=== PATIENT | female | born 1940 | race Caucasian/White ===

== ENCOUNTER → 2017-07-17 11:29 | Outpatient (CLI) | payer MEDICARE, OTHER, SELFPAY ==
[2017-07-17 14:18] LABS: Anion Gap 8 (5-15); BUN 11 mg/dL (7-18); BUN/Creat Ratio 16.4 RATIO (10-20); Calcium,Total 8.9 mg/dL (8.5-10.1); Chloride 104 mmol/L (98-107); Creatinine, Serum 0.67 mg/dL (0.55-1.02); EST Glomerular Filtration Rate 90 mL/min (>60); Est Glom Filt Rate - Afr Amer 109 mL/min (>60); Glucose 82 mg/dL (74-106); Potassium 4.2 mmol/L (3.5-5.1); Sodium Level 141 mmol/L (136-145)
== END ==
PROVIDERS: Family Provider Family Medicine; PCP Family Medicine; Visit Provider Family Medicine
DX: I10 Essential (primary) hypertension (principal)
CPT/HCPCS: 36415; 80048

== ENCOUNTER → 2017-08-28 10:20 | Outpatient (CLI) | payer MEDICARE, OTHER, SELFPAY ==
--- NOTE | 2017-08-28 10:22 | BI_ITS ---
MAMMOGRAPHY - BILATERAL SCREENING 3-D YON SYNTHESIS REASON FOR EXAM: Female, 77 years old. Bilateral Screening 3-D tomosynthesis PERTINENT HISTORY: No significant family history. TECHNIQUE: 2-D mammograms and 3-D Yon synthesis of the breast (s) were performed. CAD was performed. COMPARISON: July 25, 2016. FINDINGS: The breast composition is composed of scattered fibroglandular density. There is an indeterminate cluster of calcifications within the slightly upper, slightly inner left breast located approximately 26 mm from the nipple base. Recommend further evaluation with focal magnification views. There is no suspicious nodule. There is no suspicious mass. There are no secondary signs of malignancy. BI/SCREENING MAMM (CAD), BILAT IMPRESSION: Indeterminate clusters calcifications within the subareolar left breast. ASSESSMENT CATEGORY: BIRADS Category 0: Incomplete. Need additional imaging evaluation as above. A letter regarding these results will be sent to the patient by the facility within 30 days. FOLLOW UP RECOMMENDATION: Additional imaging recommended as above. (E) Approximately 10% of breast cancers are not detected by mammography. A normal mammogram should not delay biopsy of a clinically suspicious abnormality. Electronically Signed: Erick Nielsen MD at 12:10 EDT , Service support ,
== END ==
PROVIDERS: Family Provider Family Medicine; PCP Family Medicine; Visit Provider Family Medicine
DX: Z12.31 Encounter for screening mammogram for malignant neoplasm of breast (principal)
CPT/HCPCS: 77063; 77067

== ENCOUNTER → 2017-08-31 13:24 | Outpatient (CLI) | payer MEDICARE, OTHER, SELFPAY ==
--- NOTE | 2017-08-31 13:30 | BI_ITS ---
MAMMOGRAPHY - UNILATERAL DIAGNOSTIC: LEFT BREAST REASON FOR EXAM: Female, 77 years old. Abnormal screening mammogram. Indeterminate calcifications identified within the left breast on bilateral mammography performed August 28, 2017. PERTINENT HISTORY: Non-contributory. TECHNIQUE: Digital examination. Conventional digital magnification Mediolateral oblique (MLO) and craniocaudad (CC) views of the breast were obtained. CAD: COMPARISON: None. FINDINGS: Breast Composition: There are scattered areas of fibroglandular density. There are multiple, typically benign appearing calcifications with superimposed loose clustering. There is no suspicious cluster of pleomorphic calcifications. No other significant abnormalities are identified. BI/DIAG MAMM W/CAD, UNILAT IMPRESSION: Stable unilateral diagnostic mammogram. ASSESSMENT CATEGORY: BIRADS Category 2: Benign. A letter regarding these results will be sent to the patient by the facility within 30 days. FOLLOW-UP RECOMMENDATION: Follow-up recommended within 6 months. (C) Approximately 10% of breast cancers are not detected by mammography. A normal mammogram should not delay biopsy of a clinically suspicious abnormality. Electronically Signed: Erick Nielsen MD at 7:50 EDT , Service support ,
== END ==
PROVIDERS: Family Provider Family Medicine; PCP Family Medicine; Visit Provider Family Medicine
DX: R92.8 Other abnormal and inconclusive findings on diagnostic imaging of breast (principal)
CPT/HCPCS: 77065

== ENCOUNTER → 2018-01-15 11:23 | Outpatient (CLI) | payer MEDICARE, OTHER, SELFPAY ==
[2018-01-15 14:16] LABS: Anion Gap 9 (5-15); BUN 13 mg/dL (7-18); BUN/Creat Ratio 15.9 RATIO (10-20); Calcium,Total 9.4 mg/dL (8.5-10.1); Chloride 106 mmol/L (98-107); Cholesterol 164 mg/dL (200); Creatinine, Serum 0.82 mg/dL (0.55-1.02); EST Glomerular Filtration Rate 72 mL/min (>60); Est Glom Filt Rate - Afr Amer 87 mL/min (>60); Glucose 100 mg/dL (74-106); High Density Lipoprotein 53 mg/dL; Potassium 4.5 mmol/L (3.5-5.1); Sodium Level 145 mmol/L (136-145); Triglycerides 113 mg/dL; Very Low Density Lipoprotein 23 mg/dL (5-40)
== END ==
PROVIDERS: Family Provider Family Medicine; PCP Family Medicine; Visit Provider Family Medicine
DX: I10 Essential (primary) hypertension (principal)
CPT/HCPCS: 36415; 80048; 80061

== ENCOUNTER → 2018-09-17 | Outpatient (CLI) | payer MEDICARE, SELFPAY ==
--- NOTE | 2018-09-17 11:13 | BI_ITS ---
MAMMOGRAPHY - BILATERAL SCREENING REASON FOR EXAM: Female, 78 years old. Routine annual screening examination. PERTINENT HISTORY: Non-contributory. TECHNIQUE: Digital bilateral breast gilberto (3D mammographic acquisition) in the CC and MLO projections. 2-D mediolateral oblique (MLO) and craniocaudad (CC) views of both breasts were obtained. CAD: Full Field Digital Mammography with Computer Added Detection was performed. COMPARISON: Comparison is made with prior study dated August 28, 2017 and July 25, 2016. FINDINGS: Breast Composition: The breasts are heterogeneously dense, which may obscure small masses. There are no dominant masses or suspicious calcifications. No other significant abnormalities are identified. There has been no significant change since the prior study. BI/SCREENING MAMM (CAD), BILAT IMPRESSION: Stable bilateral screening mammogram. Yearly follow-up mammogram recommended. (A) ASSESSMENT CATEGORY: BIRADS Category 1: Negative. A letter regarding these results will be sent to the patient by the facility within 30 days. Approximately 10% of breast cancers are not detected by mammography. A normal mammogram should not delay biopsy of a clinically suspicious abnormality. [id number] Electronically Signed: Kody Falcon, at 13:51 EDT , Service support ,
== END | disposition home or self-care (01) ==
LOC: OPBI 10:52
PROVIDERS: Family Provider Family Medicine; PCP Family Medicine; Referring Provider Family Medicine; Visit Provider Family Medicine
DX: Z12.31 Encounter for screening mammogram for malignant neoplasm of breast (principal)
CPT/HCPCS: 77063; 77067

== ENCOUNTER → 2019-01-14 11:16 | Outpatient (CLI) | payer MEDICARE, SELFPAY ==
[2017-09-13 15:36] VITALS: BMI 27.4
[2019-01-14 13:31] LABS: Anion Gap 6 (5-15); BUN 14 mg/dL (7-18); Calcium,Total 9.3 mg/dL (8.5-10.1); Chloride 106 mmol/L (98-107); Cholesterol 154 mg/dL (200); Creatinine, Serum 0.82 mg/dL (0.55-1.02); EST Glomerular Filtration Rate 71 mL/min (>60); Est Glom Filt Rate - Afr Amer 86 mL/min (>60); Glucose 97 mg/dL (74-106); High Density Lipoprotein 52 mg/dL; Potassium 4.3 mmol/L (3.5-5.1); Sodium Level 140 mmol/L (136-145); Triglycerides 112 mg/dL; Very Low Density Lipoprotein 22 mg/dL (5-40)
== END ==
PROVIDERS: Family Provider Family Medicine; PCP Family Medicine; Referring Provider Family Medicine; Visit Provider Family Medicine
DX: I10 Essential (primary) hypertension (principal)
CPT/HCPCS: 36415; 80048; 80061

== ENCOUNTER 2019-06-16 11:31 | Emergency (ER) | payer MEDICARE, SELFPAY ==
[2019-06-16 11:32] VITALS: BP 149/85; PULSE 67; RESP 16; TEMP 36.6; O2SAT 95; BMI 28.0
[2019-06-16 11:41] VITALS: BP 166/76; PULSE 59; RESP 16; O2SAT 97
--- NOTE | 2019-06-16 11:49 | EKG12_ITS ---
Test Reason : HEART RACING Blood Pressure : / mmHG Vent. Rate : 058 BPM Atrial Rate : 058 BPM P-R Int : 148 ms QRS Dur : 112 ms QT Int : 442 ms P-R-T Axes : 068 003 040 degrees QTc Int : 433 ms Sinus bradycardia Incomplete right bundle branch block Nonspecific ST abnormality Abnormal ECG Confirmed by VY OSBORN MD ([id number]), tape editor TD BONDS ([id number]) on 06/18/2019 8:01:45 AM Referred By: RENETTA
[2019-06-16 12:07] LABS: Absolute Lymphocyte Count 1.07 X10^3/uL (0.83-4.51); Absolute Neutrophil Count 5.8 X10^3/uL (2.0-7.7); Basophil# 0.03 X10^3/uL; Basophil% 0.4 % (0-1); Eosinophil# 0.02 X10^3/uL; Eosinophils% 0.3 % (0-5); Hematocrit 41.3 % (37-47); Hemoglobin 14.3 g/dL (12.0-15.0); Lymphocyte # 1.07 X10^3/ul (4.0); Lymphocyte % 14.9 % (19-41); Mean Corp Hgb Conc 34.6 g/dL (32-36); Mean Corpuscular Hgb 30.9 pg (27.0-32.0); Mean Corpuscular Volume 89.2 fL (81-99); Monocyte% 4.2 % (0-10); NRBC Flagged by Analyzer 0 % (0-5); Neutrophil # 5.76 X10^3/uL (2.7-7.7); Neutrophil % 80.1 % (47-70); Platelet Count 188 K/mm3 (150-450); RBC Distribution Width CV 11.9 % (11.6-14.6); RBC Distribution Width SD 38.6 fl (35.1-43.9); Red Blood Count 4.63 M/mm3 (4.2-5.4); White Blood Count 7.2 K/mm3 (4.4-11.0)
[2019-06-16] MEDS: Ondansetron 4 MG/2 ML Vial IV (12:24)
[2019-06-16 12:44] LABS: ALB/GLOB Ratio 1.1 RATIO (0.9-2.4); AST(SGOT) 13 U/L (15-37); Alanine Aminotransfer ALT/SGPT 21 U/L (13-56); Albumin, Serum 3.9 g/dL (3.2-5.0); Alkaline Phosphatase 58 U/L (45-117); Anion Gap 9 (5-15); BUN 10 mg/dL (7-18); BUN/Creat Ratio 13.2 RATIO (10-20); Calcium,Total 9.6 mg/dL (8.5-10.1); Chloride 103 mmol/L (98-107); Creatinine, Serum 0.76 mg/dL (0.55-1.02); EST Glomerular Filtration Rate 78 mL/min (>60); Est Glom Filt Rate - Afr Amer 94 mL/min (>60); Globulin 3.4 g/dL (2.2-4.2); Glucose 155 mg/dL (74-106); Potassium 3.3 mmol/L (3.5-5.1); Protein, Total 7.3 g/dL (6.4-8.2); Sodium Level 139 mmol/L (136-145)
[2019-06-16] MEDS: LORazepam 1 MG Tablet PO (13:28)
[2019-06-16 13:36] VITALS: BP 148/78; PULSE 69; RESP 18; O2SAT 94
[2019-06-16 13:41] LABS: Red Blood Cells-Urine 0 SEEN /hpf (0-5)
[2019-06-16 13:42] LABS: Color, Urine Yellow (Yellow); Glucose, Dipstick Normal (Normal); Ketone-Dipstick 15 mg/dl (Negative); Leukocyte Esterase-Dipstick 25 /ul (Negative); Nitrite-Dipstick Negative (Negative); Occult Blood-Urine Negative /ul (Negative); Protein-Dipstick Negative (Negative); Specific Gravity, Urine 1.015 (1.002-1.030); Urine Bilirubin Dipstick Negative (Negative); Urine Clarity Clear (Clear); Urine Urobilinogen Normal (Normal)
[2019-06-16 13:48] LABS: Squamous Epithelial Cells - UA 0-5 SEEN /hpf (5-10); White Blood Cells 0-5 SEEN /hpf (0-5)
[2019-06-16 13:49] LABS: Bacteria 1+ /hpf (None Seen); Mucous, Urine 2+ /hpf (<or=2+)
--- NOTE | 2019-06-16 13:52 | ED.DCSUM_ITS ---
- ER Visit Summary Date of Service: 06/16/19 Chief Complaint: Nausea and vomiting History of Present Illness: The patient is a [address] Satinder Harp. She reports that she has nausea and vomiting that began today. She vomited once. No blood in her emesis. She denies abdominal pain. No diarrhea. Last bowel was today. She is had normal hematochezia. Patient does complain of generalized weakness. Patient reports that 5 days ago she had an episode of palpitations that she describes as a fast heart rate that lasted 3 to 4 seconds. 2 days ago she had another episode of the last 3 to 4 seconds. She denies any chest pain, cough, fever, chills, or other complaints. Physical Examination: Vitals: Stable. Afebrile. General: Well-nourished and well-developed. Head: Normocephalic atraumatic. Neck: Supple, no lymphadenopathy. No JVD. Nontender. Cardiovascular: Regular rate and rhythm. No murmurs. Respiratory: No respiratory distress. Clear to auscultation bilaterally. Abdominal: Soft, nontender, nondistended, normal bowel sounds. No guarding, rebound, or peritoneal signs. Back: Nontender. Extremities: Nontender, no edema. Skin: Normal color, no rash. Neurologic: Alert and oriented ?3. Cranial nerves II through XII are intact. Normal strength and sensation. Psych: Normal affect. Test Results: EKG sinus bradycardia with a right bundle branch block that is incomplete and a rate of 58. Is unchanged from May 2016. Troponin is ne gative. UA is negative. LFTs are normal. Chem-7 shows potassium 3.3 and glucose 155. CBC shows segmented feels 80 lymphocytes 15. Emergency Department Course and Treatment: Patient complained of anxiety while here. She was given a dose of Zofran IV and Ativan p.o. She is resting comfortably. Treatment Plan: Patient be discharged with Zofran. Strict follow-up with Dr. Harp in 2 days for another exam. At this time I do not feel comfortable writing her for more Ativan. Return to the emergency department for any worsening symptoms. Disposition: To home in improved and stable condition. Impression: 1. Palpitations. 2. Vomiting. 3. Anxiety. This note was generated with dineoutation software. It may contain incorrect words, spelling, and punctuation that were not noted in review of the chart prior to signing ED Disposition - Plan for ED Patient: Disposition: Home or Assisted Living Instructions: Palpitations Prescriptions: Ondansetron [Zofran Odt] 4 mg PO Q8H PRN PRN #10 tab PRN Reason: Nausea Prescription Printed Referrals: Satinder Jett MD [Primary Care Provider] - As soon as possible
== END 2019-06-16 15:07 | disposition home or self-care (01) ==
LOC: ED 12:00
PROVIDERS: Emergency Provider Emergency Medicine; PCP Family Medicine
DX: R00.2 Palpitations (principal); R11.10 Vomiting, unspecified; F41.9 Anxiety disorder, unspecified; I45.10 Unspecified right bundle-branch block; I10 Essential (primary) hypertension; E78.00 Pure hypercholesterolemia, unspecified; Z90.49 Acquired absence of other specified parts of digestive tract; Z79.82 Long term (current) use of aspirin; Z79.899 Other long term (current) drug therapy
CPT/HCPCS: 80053; 81001; 84484; 85025; 93005; 96361; 96374; 99285; J7040; A4216; J2405

== ENCOUNTER 2019-07-06 19:13 | Emergency (ER) | payer MEDICARE, SELFPAY ==
[2019-07-06 19:14] VITALS: BP 151/70; PULSE 74; RESP 18; TEMP 36.2; O2SAT 96; BMI 28.3
--- NOTE | 2019-07-06 19:39 | EKG12_ITS ---
Test Reason : HYPERTENSION Blood Pressure : / mmHG Vent. Rate : 070 BPM Atrial Rate : 070 BPM P-R Int : 110 ms QRS Dur : 108 ms QT Int : 406 ms P-R-T Axes : 003 016 035 degrees QTc Int : 438 ms Sinus rhythm with short WA with occasional Premature ventricular complexes Incomplete right bundle branch block Borderline ECG Confirmed by IRENA PATEL, VY ([id number]), newspaper editor PHUC HELLER ([id number]) on 07/08/2019 10:15:28 AM Referred By: RENETTA Confirmed By:VY OSBORN MD
[2019-07-06 19:46] VITALS: BP 141/76; PULSE 58; RESP 14; O2SAT 96
[2019-07-06] MEDS: LORazepam 1 MG Tablet PO (19:51)
[2019-07-06 19:58] LABS: Absolute Lymphocyte Count 1.54 X10^3/uL (0.83-4.51); Absolute Neutrophil Count 3.3 X10^3/uL (2.0-7.7); Basophil# 0.05 X10^3/uL; Basophil% 0.9 % (0-1); Eosinophil# 0.18 X10^3/uL; Eosinophils% 3.2 % (0-5); Hematocrit 37.4 % (37-47); Hemoglobin 13.8 g/dL (12.0-15.0); Lymphocyte # 1.54 X10^3/ul (4.0); Mean Corp Hgb Conc 36.9 g/dL (32-36); Mean Corpuscular Hgb 33.6 pg (27.0-32.0); Mean Platelet Vol. 9.8 fl (6.2-12.0); Monocyte# 0.58 X10^3/uL; Monocyte% 10.2 % (0-10); NRBC Flagged by Analyzer 0 % (0-5); Neutrophil # 3.34 X10^3/uL (2.7-7.7); Neutrophil % 58.5 % (47-70); Platelet Count 213 K/mm3 (150-450); RBC Distribution Width CV 12.1 % (11.6-14.6); RBC Distribution Width SD 39.9 fl (35.1-43.9); Red Blood Count 4.11 M/mm3 (4.2-5.4); White Blood Count 5.7 K/mm3 (4.4-11.0)
[2019-07-06 20:04] VITALS: BP 121/96; PULSE 64; RESP 21; O2SAT 96
[2019-07-06 20:20] LABS: Anion Gap 7 (5-15); BUN 20 mg/dL (7-18); BUN/Creat Ratio 17.9 RATIO (10-20); Calcium,Total 8.8 mg/dL (8.5-10.1); Chloride 105 mmol/L (98-107); Creatinine, Serum 1.12 mg/dL (0.55-1.02); EST Glomerular Filtration Rate 50 mL/min (>60); Est Glom Filt Rate - Afr Amer 60 mL/min (>60); Estimated Creatinine Clearance 31.16 ml/min; Glucose 131 mg/dL (74-106); Potassium 3.6 mmol/L (3.5-5.1); Sodium Level 139 mmol/L (136-145); Thyroid Stim Hormone (TSH) 2.41 uIU/mL (0.358-3.74)
--- NOTE | 2019-07-06 21:56 | ED.DCSUM_ITS ---
- ER Visit Summary Date of Service: 07/06/19 Chief Complaint: Do not feel good History of Present Illness: The patient is a [address] Satinder Harp. She reports that an hour ago she began not feeling well. When asked what she means by this she reports that her hands turn bright red and her head felt bloated. She also reports that she has a dry mouth. On review of systems patient denies any fever, chills, change in her vision. No sore throat, cough, chest pain, shortness of breath. No abdominal pain, nausea, vomiting, or diarrhea. No melena or hematochezia. Her last bowel was yesterday. No dysuria or frequency. No neck or back pain. No rash, headache, numbness, or weakness. Patient reports that over the past week there have been 3 episodes where she saw her nifedipine in her stool and it had not dissolved. She is concerned because her blood pressure is elevated. Physical Examination: Vitals: Stable. Afebrile. General: Well-nourished and well-developed. Head: Normocephalic atraumatic. Neck: Supple, no lymphadenopathy. No JVD. Nontender. Cardiovascular: Regular rate and rhythm. No murmurs. Respiratory: No respiratory distress. Clear to auscultation bilaterally. Abdominal: Soft, nontender, nondistended, normal bowel sounds. No guarding, re bound, or peritoneal signs. Back: Nontender. Extremities: Nontender, no edema. Skin: Normal color, no rash. Neurologic: Alert and oriented ?3. Cranial nerves II through XII are intact. Normal strength and sensation. Psych: Anxious. Test Results: EKG is sinus at 70 with right bundle branch block and a IN of 110. Is unchanged from previous. CBC shows monocytes of 10. Chem-7 shows a glucose 131, BUN 20, creatinine 1.12. Emergency Department Course and Treatment: Patient was given a 500 cc bolus of normal saline. She does appear quite anxious. She is given dose of Ativan p.o. She is resting comfortably and reports that her hands are back to her normal color. Treatment Plan: This time I do not have an explanation for why the patient's blood pressure medication is not being absorbed and she is finding this in her stool. However, her blood pressure currently is 141/76 and I feel that she is a suitable candidate for further outpatient evaluation. She will be discharged instructed to follow-up Dr. Satinder Harp soon as possible. Return to the emergency department for any worsening symptoms. Disposition: To home in improved and stable condition. Impression: 1. Hypertension. 2. Anxiety. This note was generated with Dizzywoodation software. It may contain incorrect words, spelling, and punctuation that were not noted in review of the chart prior to signing ED Disposition - Plan for ED Patient: Disposition: Home or Assisted Living Instructions: HYPERTENSION, Established Referrals: Satinder Jett MD [Primary Care Provider] - As soon as possible
[2019-07-06 22:05] VITALS: BP 145/67; PULSE 65; RESP 17; O2SAT 95
== END 2019-07-06 22:16 | disposition home or self-care (01) ==
PROVIDERS: Emergency Provider Emergency Medicine; PCP Family Medicine
DX: I10 Essential (primary) hypertension (principal); F41.9 Anxiety disorder, unspecified; I45.10 Unspecified right bundle-branch block; E78.00 Pure hypercholesterolemia, unspecified; Z79.82 Long term (current) use of aspirin; Z79.899 Other long term (current) drug therapy; Z87.891 Personal history of nicotine dependence
CPT/HCPCS: 80048; 84443; 85025; 93005; 96360; 99285; J7040; A4216

== ENCOUNTER 2019-07-13 01:01 | Emergency (ER) | payer MEDICARE, SELFPAY ==
[2019-07-13 01:02] VITALS: BP 155/71; PULSE 68; RESP 14; TEMP 36.6; O2SAT 97; BMI 28.5
--- NOTE | 2019-07-13 01:20 | ED.VIS.GEN ---
History of Present Illness Chief Complaint: Hypertension Informant: Patient Onset: Hours - several, since checking blood pressure at home Current Severity: - - no sx Maximum Severity: - - no sx Associated Symptoms: swelling in ankles off and on x several months. anxiety (per pt). Narrative: Patient states she feels anxious and her hands turn red when her blood pressure is up. She has felt like that tonight. Her blood pressure was 175/91 at home. Here it is [address] still feels the same way. She saw her physician after being seen here out of concern that she was seen pills show up in her stool. As a result of this, she saw nurse practitioner in the office 4 days ago who changed her medication from nifedipine ER to amlodipine 5 mg. Her losartan was left alone and she has still been taking that. She states her blood pressure has been up and nothing is changing due to this new medication. She took 2 additional ones tonight and did not feel better so presents to the emergency department for evaluation at 1 AM. She denies any other new symptoms, she denies any neurologic symptoms. She was also prescribed anxiety medication, new for her several days ago. Prior similar symptoms: Yes - seen here recently for same. - Past Medical History (1) Hypertension Status: Chronic Past Medical History - Allergies and Home Meds Allergies/Adverse Reactions: Allergies propoxyphene HCl [From Darvon] Adverse Reaction (Verified 07/13/19 01:02) Upset Stomach Primary Care Physician: Satinder Jett MD [Primary Care Provider] - 3-5 Days Lives: Alone Smoking Status: Never smoker Review of Systems General: Denies: Chills, Fever, Sweats Eyes: Denies: Visual changes - bilaterally, Diplopia ENT: Denies: Rhinorrhea, Sore throat Cardiovascular: Denies: Chest pain, Palpitations Respiratory: Denies: Dyspnea, Cough, Dyspnea on exertion Gastrointestinal: Denies: Abdominal pain, Nausea, Vomiting, Diarrhea, Melena, Hematochezia Genitourinary: Denies: Dysuria, Hematuria, Frequency Musculoskeletal: Reports: Swelling. Denies: Back pain, Extremity Pain Skin: Denies: Rash, Wounds Neurological: Denies: Headache, Weakness, Numbness Psych: Reports: Anxiety Physical Exam Vital Signs/Narrative: Vital Signs Temp Pulse Resp BP Pulse Ox 07/13/19 01:02 97.8 F 68 14 155/71 H 97 Inital Vital Signs reviewed: Yes General: Well nourished, Well developed, No Acute Distress Head: Normocephalic, Atraumatic Eyes: Perrl, EOMI ENT: Moist mucous membranes, No rhinorrhea Neck: Supple, Nontender Cardiovascular: Regular rate, Regular rhythm, No murmurs Respiratory: No distress, CTA bilaterally, Chest nontender Abdomen: Soft, Nontender, Nondistended, Normal bowel sounds Back: Nontender, Normal Inspection Extremities: Nontender, No edema Skin: Normal color, No rash Neurological: Alert, Oriented x3, Cranial nerves II-XII grossly intact, Normal Strength, Normal Sensation Psychological: Normal Mood, - - mildly anxious Diagnostic/Tx/Re-eval Laboratory Tests 07/13/19 Range/Units 01:30 Sodium 133 L (136-145) mmol/L Potassium 3.4 L (3.5-5.1) mmol/L Chloride 101 (98-107) mmol/L Carbon Dioxide 26.0 (21.0-32.0) mmol/L Anion Gap 6 (5-15) BUN 10 (7-18) mg/dL Creatinine 0.68 (0.55-1.02) mg/dL Estim Creat Clear Calc 34.90 ml/min Est GFR (MDRD) Af Amer 108 (>60) mL/min Est GFR (MDRD) Non-Af 89 (>60) mL/min BUN/Creatinine Ratio 14.8 (10-20) RATIO Glucose 140 H (74-106) mg/dL Calcium 9.2 (8.5-10.1) mg/dL - Medical Decision Making Patient has a mild renal insufficiency 1 week ago when she was here, I repeated her BMP to ensure that her creatinine was not worsening giving her intermittent ankle swelling. Her creatinine has normalized. I reassured her. Additionally, I looked up some information on the hospital clinical pharmacology information site regarding her nifedipine extended release tablets that she was seen in her stool. There is a statement that confirms this is normal and not unusual to see shells in the stool. The patient responded by saying that they were not empty. I advised her that that does not mean the drug was not absorbed. There is filler that could have remained within the shells. She wants to go back to using that medication, I advised her to do so under the direction of her doctor who she should consult with after the weekend. I advised her that if she wants to take the nifedipine ER again that is fine but she should do so without the amlodipine. Otherwise she can double her amlodipine and stay on it, it may not have taken full effect since it has not been taken for even 1 week yet. I reassured her, gave her a clonidine, her blood pressure came down to 128/52 and she is stable for discharge home under these directions. I also discussed with the patient that it is possible she is having anxiety that is not due to elevated blood pressure. At this time I see no emergent medical condition and her blood pressure is relatively stable. Close outpatient follow-up advised. ED Disposition - Plan for ED Patient: Disposition: Home or Assisted Living Diagnosis: Episode of hypertension Instructions: HYPERTENSION, Established Referrals: Satinder Jett MD [Primary Care Provider] - 3-5 Days Additional Instructions: You may either double your amlodipine and take 2 pills (10 mg) once daily, or discontinue this and continue taking your nifedipine ER like you were before until you follow-up with your doctor. Regardless of which you choose, continue taking your losartan as prescribed.
[2019-07-13] MEDS: cloNIDine HCl 0.2 MG Tablet PO (01:27)
[2019-07-13 01:49] LABS: Anion Gap 6 (5-15); BUN 10 mg/dL (7-18); BUN/Creat Ratio 14.8 RATIO (10-20); Calcium,Total 9.2 mg/dL (8.5-10.1); Chloride 101 mmol/L (98-107); Creatinine, Serum 0.68 mg/dL (0.55-1.02); EST Glomerular Filtration Rate 89 mL/min (>60); Est Glom Filt Rate - Afr Amer 108 mL/min (>60); Glucose 140 mg/dL (74-106); Potassium 3.4 mmol/L (3.5-5.1); Sodium Level 133 mmol/L (136-145)
[2019-07-13 02:05] VITALS: BP 128/52; PULSE 57; RESP 14; O2SAT 96
[2019-07-13 02:14] VITALS: BP 128/52; PULSE 64; RESP 16; O2SAT 97
[2019-07-13] MEDS: Ondansetron ODT 4 MG Tablet PO (02:15)
== END 2019-07-13 02:19 | disposition home or self-care (01) ==
PROVIDERS: Emergency Provider Emergency Medicine; PCP Family Medicine
DX: I10 Essential (primary) hypertension (principal); F41.9 Anxiety disorder, unspecified; Z79.899 Other long term (current) drug therapy
CPT/HCPCS: 36415; 80048; 99283

== ENCOUNTER 2019-07-25 11:37 | Emergency (ER) | payer MEDICARE, SELFPAY ==
[2019-07-25 11:37] VITALS: BP 135/62; PULSE 69; RESP 19; TEMP 36.9; O2SAT 99; BMI 29.0
--- NOTE | 2019-07-25 12:14 | EKG12_ITS ---
Test Reason : Blood Pressure : / mmHG Vent. Rate : 062 BPM Atrial Rate : 062 BPM P-R Int : 142 ms QRS Dur : 112 ms QT Int : 456 ms P-R-T Axes : 072 -10 -04 degrees QTc Int : 462 ms Normal sinus rhythm Incomplete right bundle branch block Nonspecific T wave abnormality Abnormal ECG Confirmed by MARIETTA JUDGE ([id number]), assignment desk editor TD BONDS ([id number]) on 07/29/2019 11:03:29 AM Referred By: KHANG Confirmed By:MARIETTA JUDGE
--- NOTE | 2019-07-25 12:14 | RAD_ITS ---
STUDY: X-RAY CHEST REASON FOR EXAM: Female, 79 years old. Cough, SOB TECHNIQUE: Single AP portable view of the chest. COMPARISON: None. FINDINGS: EKG electrodes are seen. The lungs are clear and expanded. There is no demonstrated pleural abnormality. Normal size heart. Normal mediastinum and freddie. Normal visualized pulmonary arteries. There is atherosclerotic calcification of the aortic arch with tortuosity. Normal visualized thoracic spine. Normal visualized ribs, clavicles, and shoulders. There is no demonstrated abnormality of the visualized soft tissue structures of the upper abdomen. RAD/Chest 1 View (Portable) IMPRESSION: No acute abnormality is seen. Electronically Signed: Kody Falcon, at 12:52 EDT , Service support ,
[2019-07-25] MEDS: diazePAM 5 MG Tablet 2.5 MG PO ×2 (12:32→13:39)
[2019-07-25 12:40] LABS: Absolute Neutrophil Count 5.5 X10^3/uL (2.0-7.7); Basophil# 0.02 X10^3/uL; Basophil% 0.3 % (0-1); Hematocrit 39.7 % (37-47); Hemoglobin 14.1 g/dL (12.0-15.0); Lymphocyte % 13.3 % (19-41); Mean Corp Hgb Conc 35.5 g/dL (32-36); Mean Corpuscular Hgb 31.3 pg (27.0-32.0); Mean Platelet Vol. 9.2 fl (6.2-12.0); Monocyte# 0.31 X10^3/uL; Monocyte% 4.6 % (0-10); NRBC Flagged by Analyzer 0 % (0-5); Neutrophil # 5.54 X10^3/uL (2.7-7.7); Neutrophil % 81.7 % (47-70); Platelet Count 199 K/mm3 (150-450); RBC Distribution Width CV 11.9 % (11.6-14.6); RBC Distribution Width SD 38.4 fl (35.1-43.9); Red Blood Count 4.51 M/mm3 (4.2-5.4); White Blood Count 6.8 K/mm3 (4.4-11.0)
[2019-07-25] MEDS: Ondansetron 4 MG/2 ML Vial IV (12:50)
[2019-07-25 12:56] LABS: ALB/GLOB Ratio 1.2 RATIO (0.9-2.4); AST(SGOT) 18 U/L (15-37); Alanine Aminotransfer ALT/SGPT 22 U/L (13-56); Albumin, Serum 3.9 g/dL (3.2-5.0); Alkaline Phosphatase 60 U/L (45-117); Anion Gap 8 (5-15); BUN 6 mg/dL (7-18); BUN/Creat Ratio 8.8 RATIO (10-20); Calcium,Total 8.9 mg/dL (8.5-10.1); Chloride 100 mmol/L (98-107); Creatinine, Serum 0.68 mg/dL (0.55-1.02); EST Glomerular Filtration Rate 88 mL/min (>60); Est Glom Filt Rate - Afr Amer 106 mL/min (>60); Globulin 3.3 g/dL (2.2-4.2); Glucose 155 mg/dL (74-106); Potassium 3.2 mmol/L (3.5-5.1); Protein, Total 7.2 g/dL (6.4-8.2); Sodium Level 133 mmol/L (136-145)
[2019-07-25 13:27] VITALS: BP 124/63; PULSE 66; RESP 18; O2SAT 96
--- NOTE | 2019-07-25 13:31 | ED.VIS.GEN ---
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 This is her chief complaint. She is presenting to the emergency department via EMS, her [id number] had called. She has been on Ativan at night but did not take it last night, she does not have any chest pain she has difficulty breathing. She has no cough or congestion. She has no DVT or PE risk factors she has no calf pain or leg pain. Past Medical History - Allergies and Home Meds Allergies/Adverse Reactions: Allergies propoxyphene HCl [From Darvon] Adverse Reaction (Verified 07/25/19 11:47) Upset Stomach Primary Care Physician: Satinder Jett MD [Primary Care Provider] - 3-5 Days Prior records reviewed: Yes Past Medical History: - - Hypertension, hypercholesterolemia Smoking Status: Never smoker Review of Systems All systems negative except as indicated General: Denies: Fever Eyes: Denies: Blurred Vision - bilaterally Cardiovascular: Denies: Chest pain, Palpitations Respiratory: Denies: Dyspnea, Cough Gastrointestinal: Denies: Abdominal pain, Nausea, Vomiting Genitourinary: Denies: Dysuria, Hematuria Musculoskeletal: Denies: Myalgias Skin: Denies: Rash Neurological: Denies: Headache, Weakness Psych: Reports: Anxiety Physical Exam Vital Signs/Narrative: Vital Signs Temp Pulse Resp BP Pulse Ox 07/25/19 13:27 66 18 124/63 H 96 07/25/19 11:37 98.4 F 69 19 H 135/62 H 99 General: Well nourished, Well developed Head: Normocephalic ENT: Moist mucous membranes Cardiovascular: Regular rate, Regular rhythm, No murmurs Respiratory: No distress, CTA bilaterally, Chest nontender Abdomen: Soft, Nontender, Nondistended Back: Nontender, Normal Inspection Extremities: Nontender, No edema Skin: Normal color Neurological: Alert, Normal Strength, Normal Sensation Psychological: - - Anxious appearing Diagnostic/Tx/Re-eval Chest X-Ray - ED: 1 View, Read by ED Physician, Normal, Lungs, Chronic Changes, No Infiltrates - Rhythm Strip Rhythm Strip: Sinus Rhythm Rate: 55 Ectopy: None, - - EKG Initial EKG Interpretation: - - Normal sinus rhythm with a rate of 62. Normal MD interval. QTC is normal. Nonspecific ST changes throughout. Nonspecific intraventricular conduction delay. Otherwise unremarkable EKG Interpreted by emergency doctor - Medical Decision Making Patient has a normal work-up. She has a normal EKG. She tells me she is anxious. She has been seen for this before. The Ativan and has been working at home. I gave her Valium and she is slightly improved she wanted another dose. I will reevaluate her. aquacultural worker supervisor is in the room discussing with her alternatives for follow-up. Patient was seen by me during peak influenza as well as the coronavirus outbreak. It is an epidemic. It is in National state of emergency. Emergency departments are full. The hospitals are full. There is quite a bit of a risk in all patients presenting to the emergency department. However per [facility] protocol all attempts were made by myself as well as the staff to keep the contamination level down. I was fully mask and gloved the entire time in the patient's presence. Patient may benefit from more testing however at this time it would be riskier to either get more testing or to get admitted to the hospital. The patient has normal vital signs appears well and can get the rest of the testing done in the outpatient environment which would be much safer for the patient. ED Disposition - Plan for ED Patient: Disposition: Home or Assisted Living Diagnosis: Anxiety, Dyspnea Instructions: ED Dyspnea, Anxiety Reaction Referrals: Satinder Jett MD [Primary Care Provider] - 3-5 Days
--- NOTE | 2019-07-25 13:50 | CM.ED ---
SOCIAL WORK INFORMANT: DR. LEDESMA REASON FOR REFERRAL: ANXIETY MET WITH PATIENT AND SON IN ROOM. PATIENT GAVE PERMISSION FOR THIS WORKER TO SPEAK OPENLY WITH SON PRESENT. INTRODUCED ROLE AND REASON FOR REFERRAL. PATIENT REPORTS HISTORY OF ANXIETY AND DEPRESSION. PATIENT STATES IS PRESCRIBED MEDICATION, BUT DOES NOT BELIEVE MEDICATION IS WORKING. PATIENT STATES MY NERVES ARE SHOT. PATIENT DISCUSSED FAMILY HISTORY OF MENTAL HEALTH. SON REPORTS PATIENT HAD A NERVOUS BREAKDOWN IN 1970'S WHICH RESULTED IN HOSPITALIZATION. SON REPORTED PATIENT'S MENTAL HEALTH HAS BEEN DECLINING SINCE PASSING OF IN 2016. PATIENT REPORTS HAS BEEN TO COUNSELING IN THE PAST. PATIENT'S PRIMARY CARE PHYSICIAN, DR. JONES IS MANAGING MEDICATIONS. PATIENT REPORTS LIVES HOME ALONE AND IS WORRIED ABOUT BEING ALONE. SON STATED HAS ASKED PATIENT IN THE PAST TO MOVE IN WITH HE AND HIS . 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 EDUCATION PROVIDED ON LOCAL RESOURCES. FURTHER DISCUSSED MENTAL HEALTH TREATMENT. PATIENT AND SON IN AGREEMENT WITH PLAN FOR FOLLOW UP AND WISH FOR PATIENT TO GET CONNECTED WITH PSYCHIATRY. CALL TO THE [facility]. INTAKE APPOINTMENT SCHEDULED FOR TOMORROW AT 1P WITH SHERYL. PATIENT AND SON UPDATED ON APPOINTMENT TIME AND DATE. STAFF AND DR. LEDESMA UPDATED ON THE ABOVE. PLAN: HOME WITH ASSISTANCE FROM SON AND FOLLOW UP WITH THE [facility] TOMORROW AT 1P. STEPHANIE COURTNEY, HARMEET.
[2019-07-25] MEDS: Haloperidol 1 MG Tablet PO (14:08)
[2019-07-25 14:35] VITALS: BP 133/62; PULSE 65; RESP 17; O2SAT 96
--- NOTE | 2019-07-25 14:36 | ED.RN ---
Hans from social work spoke with pt and pt's son to set up resources.
== END 2019-07-25 14:37 | disposition home or self-care (01) ==
PROVIDERS: Emergency Provider Emergency Medicine; PCP Family Medicine
DX: F41.9 Anxiety disorder, unspecified (principal); R06.00 Dyspnea, unspecified; I10 Essential (primary) hypertension; E78.00 Pure hypercholesterolemia, unspecified; Z79.82 Long term (current) use of aspirin; Z79.899 Other long term (current) drug therapy
CPT/HCPCS: 71045; 80053; 84484; 85025; 93005; 96374; 99285; J7040; A4216; J2405